=== PATIENT | female | born 1955 | race Caucasian/White ===

== ENCOUNTER 2019-05-31 07:24 | Day surgery (SDC) | payer BC ==
[2019-05-29 14:54] VITALS: BMI 32.0
[~2019-05-31 07:24] MED LIST: LACTATED RINGERS SOLUTION 1,000 ML IV SCH; ONDANSETRON 4 MG/2 ML VIAL IVPUSH PRN; oxyCODONE HCL 5 MG TABLET PO PRN
[2019-05-31] MEDS ORDERED: ACETAMINOPHEN INJECTION 100 ML IVPB ONE (07:44)
[2019-05-31] MEDS ORDERED: DEXAMETHASONE SOD PHOSPHATE/PF 10 MG/ML SDV ONE (08:13)
[2019-05-31] MEDS ORDERED: ROPIVACAINE HCL 0.5% 30ML VIAL ONE (08:13)
[2019-05-31] MEDS ORDERED: MIDAZOLAM HCL 2 MG/2 ML SINGLE DOSE VIAL ONE ×2 (08:14)
[2019-05-31] MEDS ORDERED: ceFAZolin SODIUM 1 GM VIAL ONE (08:34)
[2019-05-31] MEDS ORDERED: DEXAMETHASONE SOD PHOSPHATE 4 MG/1 ML VIAL ONE (08:36)
[2019-05-31 08:54] LABS: EPI CELLS 10.3 /HPF (0-5/HPF); HYALINE CASTS 32 /lpf (0-8); URINE APPEARANCE CLEAR; URINE BACTERIA 1.9 /hpf (NEGATIVE); URINE BILIRUBIN NEGATIVE (NEGATIVE); URINE COLOR YELLOW; URINE GLUCOSE (UA) NEGATIVE (NEGATIVE); URINE KETONE NEGATIVE (NEGATIVE); URINE LEUK ESTERASE 1+ (NEGATIVE); URINE NITRITE NEGATIVE (NEGATIVE); URINE PROTEIN NEGATIVE (NEGATIVE); URINE RBC 3 /hpf (0-4); URINE UROBILINOGEN 0.2 mg/dL (0.2-1.0); URINE WBC 7 /hpf (0-5)
--- NOTE | 2019-05-31 09:22 | HP ---
Satellite [facility] - Chief Complaint Chief Complaint: right wrist pain - Past Medical History Allergies/Adverse Reactions: Allergies Allergy/AdvReac Type Severity Reaction Status Date / Time chocolate flavor Allergy Verified 05/31/19 08:09 ciprofloxacin HCl Allergy Rash Verified 05/31/19 08:09 [From Cipro] lisinopril Allergy Rash Verified 05/31/19 08:09 - Current Medications Current Medications: Home Medications Medication Instructions Recorded AmLODIPine 5MG/BENAZEPRIL 20MG 1 cap PO BID 05/08/12 [Lotrel (Nf)] Ergocalciferol (Vitamin D2) 1.25 mg PO WEEKLY 05/29/19 [Vitamin D2] Omeprazole Magnesium [Prilosec Otc] 20 mg PO DAILY 05/29/19 Hydrocodone/Acetaminophen 1 each PO Q6H #30 tablet MDD 4 05/31/19 [Hydrocodone-Acetamin 5-325 mg] Satellite Physical Exam - Physical Examination Vital Signs: Vital Signs Period Temp Pulse Resp BP Sys/Dangelo Pulse Ox Last 24 Hr 98.3 F 84 16 137/77 98 General Appearance: Well Nourished, Well Developed, Alert & Oriented x3 ENT: Clear Lung: Normal air movement Heart: Regular rate & rhythm Extremities: Other (right wrist- + swelling, + ttp, + tinels, + phalens, decr rom, emg + cts) Neurological: Intact, Alert, Oriented Satellite Impression/Plan - Impression/Plan Impression: right wrist OA, cts Operative Procedure: right wrist proximal row carpectomy, ctr, PIN neuroectomy Date to be Performed: 05/31/19
[2019-05-31] MEDS ORDERED: LIDOCAINE HCL 1%, 10 MG/ML (20ML VIAL) INF ONE ×2 (09:45→09:58)
[2019-05-31] MEDS ORDERED: ceFAZolin SODIUM 1 GM VIAL IVPB ONE (09:45)
[2019-05-31] MEDS ORDERED: BUPIVACAINE HCL/PF 0.5% (5MG/ML) 10 ML VIAL IJ ONE ×2 (09:45→09:58)
[2019-05-31] MEDS ORDERED: PROPOFOL 20 ML ONE ×2 (10:02)
[2019-05-31] MEDS ORDERED: ePHEDrine SULFATE 50 MG/1 ML AMPULE ONE (11:24)
--- NOTE | 2019-05-31 11:47 | OP ---
Operative Note - Note: Operative Date: 05/31/19 ([facility]) Pre-Operative Diagnosis: right wrist OA, cts Operation: right wrist proximal row carpectomy, ctr, PIN neurectomy Post-Operative Diagnosis: Same as Pre-op Surgeon: Power Ortega Paper Novelty Maker: Quinton Trejo Anesthesiologist/DETECTIVE SERGEANT: Israel Johnson Anesthesia: General, Local Specimens Removed: bone fragments, PIN Estimated Blood Loss (mls): 0 (tourniquet) Operative Report Dictated: Yes
[2019-05-31] MEDS ORDERED: ONDANSETRON 4 MG/2 ML VIAL ONE (12:02)
[2019-05-31 13:25] VITALS: PULSE 80; TEMP 97.8
[2019-05-31 14:00] LABS: URINE CRYSTALS CALCIUM OXALATE-1+ /hpf
[2019-05-31 14:40] VITALS: BP 112/64
--- NOTE | 2019-05-31 19:46 | SPEC ---
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 PROCEDURE: 1. Proximal row carpectomy. 2. Radial styloidectomy. 3. Posterior interosseous nerve neurectomy. 4. Carpal tunnel release. 5. Tenosynovectomy. SURGEON: Kira Lloyd MD REAL ESTATE DEVELOPER: CORINNE Wasserman; Israel Johnson MD ANESTHESIA: Right interscalene block with LM anesthesia. DRAINS: None. COMPLICATIONS: None. SPECIMEN: 1. Tenosynovium, right carpal tunnel. 2. Posterior interosseous nerve. 3. Carpal bone and cartilage and radial styloid, right wrist. BLOOD LOSS: None. BLOOD GIVEN: None. FLUID REPLACEMENT: 1500 mL Plasmalyte. INDICATIONS: This patient is a 63-year-old female with a preoperative diagnosis of right wrist SNAC wrist. After understanding the potential risks, complications, alternatives, and benefits of surgery versus nonsurgical treatment, the patient elected to undergo this procedure. She understands that her wrist will not be perfect, the goal was to minimize but perhaps not eliminate pain and maximize function but not make it perfect or normal. She understands that and has elected to go forward with surgery. DESCRIPTION OF PROCEDURE: The patient was brought to the operating room, peripheral IV placed and intravenous sedation was given. One gram of intravenous Ancef was given. MAC anesthesia was induced. A tourniquet was applied to the right upper arm and the right upper extremity was prepped and draped in sterile fashion. The entire case was done under 3.8 loupe magnification. A marking pen was utilized to kayley out a longitudinal incision in an already existing skin crease. Twenty mL of 0.5% Marcaine mixed with 1% Lidocaine was injected in and around the surgical incision. The right upper extremity was elevated, exsanguinated with an Esmarch bandage and the tourniquet inflated to 250 mmHg. A No. 15 scalpel blade was utilized to cut down through the skin. Subcutaneous hemostasis was achieved with the bipolar cautery. Dissection was done through the superficial palmar fascia. Self-retaining retractors were placed into the wound. Under direct visualization, the transverse carpal ligament was transected with a No. 15 scalpel blade, exposing the median nerve and the contents of the carpal tunnel. The distal and proximal extents of the release were completed with a Littler scissor and checked with irrigation and my small finger. They were seen to be complete. Limited dissection was done on the radial side of the median nerve and more extensive dissection was done on the ulnar side of the median nerve. The patients nerve was seen to be quite compressed by epineurium and therefore a limited epineurotomy was performed. A Ragnell retractor was used to gently retract the median nerve in a radial direction. The patient had a lot of tenosynovitis and therefore a tenosynovectomy was performed off all 9 flexor tendons. This was passed off the field as tenosynovium, right wrist. The floor of the carpal tunnel was checked. There were no abnormal masses or ganglion cysts. The area was copiously irrigated and washed out and closure begun. Undyed 4-0 Vicryl was used to close the deep dermal layer. Final skin reapproximation was done with horizontal mattress 4-0 nylon sutures. The area was then washed and dried, covered with Xeroform, 4x4s, fluffs between the fingers, Webril and a 4-inch plaster roll was utilized to make a volar splint, which was then wrapped with Tanvir and Coban. Once we were finished with the volar aspect of the wrist, we went to the dorsal aspect. A slightly oblique incision would be made. A transverse incision was marked out with a marking pen at the level of the distal radial styloid. Then 15 mL of 0.5% Marcaine, 1% Lidocaine mix was injected in and around the surgical area. The right upper extremity was elevated, exsanguinated with an Esmarch bandage and the tourniquet inflated to 250 mg of mercury. A No. 15 scalpel blade was cut under the skin, subcutaneous hemostasis achieved with a bipolar cautery. There was one large vein which was cauterized, transected and tied with 2-0 silk suture. The dorsal retinaculum was exposed. Self-retaining retractors were placed into the wound. The interval between the third and fourth dorsal wrist compartment was visualized and incision made through it, raising an ulnar based flap. A 2-0 silk retraction suture was placed into the dorsal retinacular flap. Next, a 0.5-inch Donald drain was placed around the tendons of the fourth dorsal wrist compartment and retracted in ulnar direction. The posterior interosseous nerve at the radial base of the fourth dorsal wrist compartment was dissected out, identified and transected as proximal as possible. This was passed off the field as specimen No. 1, posterior interosseous nerve right wrist. Next, the extensor pollicis longus was partially released from its sheath and the interval between the third and fourth dorsal wrist compartment was opened with the capsulotomy. Dissection was done with a combination of the Beeson elevator and Mack elevator, Littler scissors and a No. 15 scalpel blade, raising these flaps of soft tissue attachments of the dorsal aspect of the proximal carpal row. Next, the distal radius, the scaphoid, lunate, the triquetrum and the capitate were all directly visualized. The wrist was put through a range of motion to confirm that these were the correct bones. The patient had a large scaphoid diastasis and affixed deformity with the lunate and deformity in the scaphoid volarly flexed. Then using a combination of a threaded josias-stick, No. 15 scalpel blade, Mack elevator and Beeson elevator, the three bones of the proximal carpal row, i.e., the scaphoid, the lunate and the triquetrum were all removed in a piece-meal fashion, passed off the field as specimen. The area was copiously irrigated and washed out to remove any small debris. Under direct visualization as well as palpation with my finger, I was not able feel any remnants of the proximal carpal row. The head of the capitate was free of osteoarthritis and sat down in the lunate fossa quite nicely. The radial scaphoid capitate ligament was directly visualized and seen to be completely intact. Next, our attention turned to dissection between the first and second dorsal wrist compartment. A subperiosteal dissection was done with a radial styloid and the radial styloid was excised, approximately 4 mm. This was also passed off the field as specimen No. 3, radial styloid right wrist. The area was copiously irrigated and washed out. The dorsal T capsulotomy was closed with 2-0 Vicryl sutures, came together quite nicely. The dorsal retinaculum was then closed over the fourth dorsal wrist compartment using 4-0 undyed Vicryl sutures. The area was irrigated and washed out again. The 4-0 undyed Vicryl was used to close the deep dermal layer and final skin re-approximation was done with a running subcuticular 4-0 Biosyn suture. The incision was covered with Steri-Strips, 4 x 4 gauze, Webril and a volar 4-inch Orthoglass splint was applied and wrapped with a Tanvir and a 4-inch SCOT bandage. ADDENDUM: Subcutaneous hemostasis was achieved with bipolar cautery. The 3.8 loupe magnification was used throughout the entire case. Dorsal neurovascular structures were saved and retracted to the side. Dissection was done down to the dorsal retinaculum. Weitlaner retractors were placed into the wound. I then used a fresh number 15 scalpel blade to incise the dorsal retinaculum, keeping an ulnar flap, and it was marked with a 2.0 silk suture for later repair. I then retracted the extensor tendons in an ulnar direction, found the posterior interosseous nerve on the base of the 4th dorsal wrist compartment, dissected it free, and excised a 1 cm length of it and passed it off the field as specimen number 2, posterior interosseous nerve, right wrist. This was done to denervate the wrist capsule and minimize pain. Next, I did a T capsulotomy type incision with a fresh number 15 scalpel blade through the dorsal wrist capsule and dissected the 4 flaps free of the periosteum on the dorsal aspect of the carpal bones. They were all retracted for later repair with 2-0 silk sutures. This exposed a very arthritic proximal carpal row and a scaphoid nonunion. Using a combination of the small straight osteotomes, mallet, number 15 scalpel blade, Beeson elevator, and rongeur, I then removed, in a piecemeal fashion, the lunate first, then the triquetrum, then the scaphoid in their entirety. It was all passed off the field as specimen. The area was copiously irrigated and washed out. I did not feel or see any other bone in the proximal carpal row. The area was copiously irrigated and washed out again. The patient had a prominent radial styloid, so then I used the rongeur to take off the radial styloid and include it as part of the specimen. I took great care to preserve the volar ligamentous structures. The capitate came down and sat in the lunate fossa of the radius quite well. The dorsal capsule was closed with 2-0 Vicryl sutures. It all came together quite well, was quite sturdy, stabilized the wrist quite well. The area was copiously irrigated and washed out again. Next, I closed the dorsal extensor retinaculum over the 4th dorsal wrist compartment tendons. This also came together quite well. Superficially it was washed out again. Final skin reapproximation was done with 4-0 undyed Vicryl in the deep dermal layer and final skin reapproximation was done with a running subcuticular 4-0 Biosyn stitch. It was then washed and dried and covered with Steri-Strips, Xeroform on the front carpal tunnel incision, sterile 4 x 4's, fluffs between the fingers, Webril, and a volar Ortho-Glass splint was applied, wrapped with Tanvir and Coban. Tourniquet was taken down now for a total tourniquet time of 85 minutes. There were no complications during the case. The patient tolerated the procedure quite well and was brought to the ambulatory recovery room in stable condition. KIRA LLOYD M.D. [id number]
--- NOTE | 2019-06-05 17:12 | PATH ---
Surgical Pathology Report Patient Name: MAKAYLA BRADY [facility]. Rec. #: [id number] /Age/Gender: 1955 (Age: 63) / F Account: [id number] Location: [facility] SURGICAL Taken: 05/31/2019 Received: 05/31/2019 Reported: 06/05/2019 Physicians: Power Ortega M.D. Specimen(s) Received A: TENOSYNOVIUM RIGHT HAND B: POSTERIOR INTEROSSEOUS NERVE RIGHT HAND C: CARPAL BONE-RIGHT HAND Clinical History Right carpal tunnel syndrome Final Diagnosis A. TENOSYNOVIUM, HAND, RIGHT, CARPAL TUNNEL RELEASE: BENIGN DENSE FIBROCONNECTIVE TISSUE. B. POSTERIOR INTEROSSEOUS NERVE, HAND, RIGHT, NEURECTOMY: PORTION OF NERVE WITHOUT SIGNIFICANT PATHOLOGIC FINDINGS. C. BONE, CARPAL TUNNEL, HAND, RIGHT, EXCISION: FRAGMENTS OF BENIGN BONE WITH DEGENERATIVE AND REACTIVE CHANGES, DENSE FIBROCONNECTIVE TISSUE, AND CARTILAGE. Electronically Signed Janet Mora M.D. Gross Description A. Received in formalin labeled "tenosynovium right hand," is a 2.0 x 1.4 x 0.3 cm portion of ortiz-yellow soft tissue, consistent with tenosynovium. The specimen is submitted in toto in one cassette. B. Received in formalin labeled "posterior interosseous nerve right hand," is a 1.7 x 0.3 x 0.1 cm ortiz-yellow portion of soft tissue, possibly consistent with nerve. The specimen is submitted in toto in one cassette. C. Received in formalin labeled "carpal tunnel bone right hand," is a 5.5 x 4.0 x 1.2 cm aggregate of abundant ortiz-yellow bone fragments. A manufacturer representative portion is submitted in one cassette, following decalcification. 06/01/201906/01/2019
== END 2019-05-31 14:30 | disposition home or self-care (01) ==
LOC: JASU-SURG 07:24
PROVIDERS: ATTEND Orthopaedic Surgery
PROC: 01B40ZZ Excision of Ulnar Nerve, Open Approach (ICD-10-PCS; 2019-05-31)
PROC: 01N50ZZ Release Median Nerve, Open Approach (ICD-10-PCS; 2019-05-31)
PROC: 0LB50ZZ Excision of Right Lower Arm and Wrist Tendon, Open Approach (ICD-10-PCS; 2019-05-31)
PROC: 0PTM0ZZ Resection of Right Carpal, Open Approach (ICD-10-PCS; principal; 2019-05-31 09:00)
PROC: 0PBH0ZZ Excision of Right Radius, Open Approach (ICD-10-PCS; 2019-05-31 09:00)
DX: M19.031 Primary osteoarthritis, right wrist (principal); G56.01 Carpal tunnel syndrome, right upper limb; M65.9 Synovitis and tenosynovitis, unspecified; S62.023 Displaced fracture of middle third of navicular [scaphoid] bone of unspecified wrist
CPT/HCPCS: 81003; 88304-TC; 88311-TC; 94760; J0131

== ENCOUNTER 2021-06-12 07:12 | Day surgery (SDC) | payer OTHER, BC ==
[2021-06-11 10:23] VITALS: BMI 32.0
[2021-06-12] MEDS ORDERED: PROPOFOL 20 ML ONE ×4 (07:16)
[2021-06-12] MEDS ORDERED: LIDOCAINE HCL/PF 2% SDV 5ML VIAL ONE (07:16)
[2021-06-12 07:47] VITALS: TEMP 98.2
[2021-06-12 10:29] VITALS: BP 113/70; PULSE 70
== END 2021-06-12 10:05 | disposition home or self-care (01) ==
LOC: FASU-ENDO 07:12
PROVIDERS: ATTEND Internal Medicine Gastroenterology
PROC: 0DBL8ZX Excision of Transverse Colon, Via Natural or Artificial Opening Endoscopic, Diagnostic (ICD-10-PCS; 2021-06-12)
PROC: 0DB98ZX Excision of Duodenum, Via Natural or Artificial Opening Endoscopic, Diagnostic (ICD-10-PCS; 2021-06-12)
PROC: 0DB68ZX Excision of Stomach, Via Natural or Artificial Opening Endoscopic, Diagnostic (ICD-10-PCS; 2021-06-12)
PROC: 0D748DZ Dilation of Esophagogastric Junction with Intraluminal Device, Via Natural or Artificial Opening Endoscopic (ICD-10-PCS; 2021-06-12)
PROC: 0DBK8ZX Excision of Ascending Colon, Via Natural or Artificial Opening Endoscopic, Diagnostic (ICD-10-PCS; principal; 2021-06-12 08:28)
DX: Z12.11 Encounter for screening for malignant neoplasm of colon (principal); D12.2 Benign neoplasm of ascending colon; K63.5 Polyp of colon; K29.50 Unspecified chronic gastritis without bleeding
CPT/HCPCS: 88305-TC; 88342-TC

== ENCOUNTER 2022-02-23 10:39 | Emergency (ER) | payer OTHER, BC ==
[2022-02-23 10:54] VITALS: BP 144/72; PULSE 75; TEMP 97.8; BMI 31.1
== END 2022-02-23 11:40 | disposition home or self-care (01) ==
LOC: FER 10:39
DX: L30.9 Dermatitis, unspecified (principal)
CPT/HCPCS: 99281-25

== ENCOUNTER 2022-12-10 08:12 | Day surgery (SDC) | payer OTHER, BC ==
[2022-12-07 15:32] VITALS: BMI 31.4
[2022-12-10 08:43] VITALS: RESP 16
[2022-12-10] MEDS ORDERED: LIDOCAINE HCL 1%, 10 MG/ML (20ML VIAL) ONE (09:16)
[2022-12-10] MEDS ORDERED: BUPIVACAINE HCL/PF 0.25% (2.5MG/ML) 10 ML VIAL ONE (09:16)
[2022-12-10] MEDS ORDERED: LIDOCAINE HCL/PF 2% SDV 5ML VIAL ONE (09:27)
[2022-12-10] MEDS ORDERED: MIDAZOLAM HCL 2 MG/2 ML SINGLE DOSE VIAL ONE (09:28)
[2022-12-10] MEDS ORDERED: PROPOFOL 60 ML ONE (09:28)
[2022-12-10] MEDS ORDERED: DEXAMETHASONE SOD PHOSPHATE 4 MG/1 ML VIAL ONE (10:27)
[2022-12-10] MEDS ORDERED: ceFAZolin SODIUM 1 GM VIAL ONE (10:27)
[2022-12-10] MEDS ORDERED: ONDANSETRON 4 MG/2 ML VIAL ONE (10:39)
[2022-12-10] MEDS ORDERED: KETOROLAC TROMETHAMINE 30 MG/1 ML VIAL ONE (10:39)
[2022-12-10 11:23] VITALS: TEMP 98.1
[2022-12-10 11:49] VITALS: BP 119/77; PULSE 77
== END 2022-12-10 12:04 | disposition home or self-care (01) ==
LOC: FASU 08:12
PROVIDERS: ATTEND Orthopaedic Surgery
PROC: 0LN70ZZ Release Right Hand Tendon, Open Approach (ICD-10-PCS; principal; 2022-12-10 10:43)
DX: M65.341 Trigger finger, right ring finger (principal)
CPT/HCPCS: 88304-TC

== ENCOUNTER 2023-01-28 19:38 | Emergency (ER) | payer OTHER, BC ==
[2023-01-28 19:46] VITALS: BP 135/92; PULSE 96; RESP 18; TEMP 97.8; BMI 31.1
[2023-01-28] MEDS ORDERED: SODIUM CHLORIDE 1,000 ML IV STA (19:57)
[2023-01-28 20:39] LABS: ALBUMIN 3.6 g/dl (3.4-5.0); BILIRUBIN,TOTAL 1.4 mg/dl (0.2-1); CALCIUM 9.3 mg/dl (8.5-10); CREATININE 1.1 mg/dl (0.55-1.3); TOT PROT 6.7 g/dl (6.4-8.2)
[2023-01-28 21:56] LABS: BASO % 0.3 % (0-2.0); EOS % 0.7 % (0-4.5); HEMATOCRIT 39.5 % (32.4-45.2); HEMOGLOBIN 13.3 GM/dL (10.7-15.3); LYMPH % 34.7 % (8-40); MCHC 33.6 g/dl (32.0-36.0); MEAN CELL VOLUME 80.4 fl (80-96); MEAN PLT VOLUME 8.8 fl (7.5-11.1); MONO % 16.4 % (3.8-10.2); NEUT % 47.9 % (42.8-82.8); PLATELET COUNT 243 10^3/uL (134-434); RBC 4.91 M/mm3 (3.60-5.2); RDW 14.5 % (11.6-15.6); WHITE BLOOD COUNT 3.7 K/mm3 (4.0-10.0)
== END 2023-01-28 22:37 | disposition home or self-care (01) ==
LOC: FER 19:38
PROC: 3E0337Z Introduction of Electrolytic and Water Balance Substance into Peripheral Vein, Percutaneous Approach (ICD-10-PCS; principal; 2023-01-28)
DX: R53.83 Other fatigue (principal); R19.7 Diarrhea, unspecified; Z87.19 Personal history of other diseases of the digestive system
CPT/HCPCS: 36415; 80053; 85025; 99284-25

== ENCOUNTER 2023-06-01 04:25 | Day surgery (SDC) | payer OTHER, BC ==
[2023-05-31 12:31] VITALS: BMI 31.1
[~2023-06-01 04:25] MED LIST changes: -LACTATED RINGERS SOLUTION 1,000 ML IV SCH; +LIDOCAINE HCL 1% PRESERVATIVE FREE - 30ML VIAL IJ ONE; -ONDANSETRON 4 MG/2 ML VIAL IVPUSH PRN; -oxyCODONE HCL 5 MG TABLET PO PRN
[2023-06-01] MEDS ORDERED: LIDOCAINE HCL/PF 2% SDV 5ML VIAL ONE (07:37)
[2023-06-01] MEDS ORDERED: BUPIVACAINE HCL/PF 0.5% (5MG/ML) 10 ML VIAL ONE (07:38)
[2023-06-01] MEDS ORDERED: BUPIVACAINE HCL/PF 0.25% (2.5MG/ML) 10 ML VIAL ONE (07:38)
[2023-06-01] MEDS ORDERED: LIDOCAINE HCL/PF 1% SDV 5ML VIAL ONE (07:38)
[2023-06-01] MEDS ORDERED: BUPIVACAINE HCL/PF 0.75% 10 ML VIAL ONE (07:38)
[2023-06-01] MEDS ORDERED: DEXAMETHASONE SOD PHOSPHATE 10 MG/1 ML VIAL ONE (07:38)
[2023-06-01] MEDS ORDERED: ACETAMINOPHEN 500 MG TABLET (FP) PO PRN (08:27)
[2023-06-01] MEDS ORDERED: LIDOCAINE HCL 1% PRESERVATIVE FREE - 30ML VIAL IJ ONE (13:34)
[2023-06-01 13:56] VITALS: RESP 18
[2023-06-01 14:54] VITALS: BP 123/69; PULSE 71; TEMP 97.8
== END 2023-06-01 14:52 | disposition home or self-care (01) ==
LOC: JASU-SURG 04:25
PROVIDERS: ATTEND Pain Medicine Pain Medicine
PROC: 3E0R3BZ Introduction of Anesthetic Agent into Spinal Canal, Percutaneous Approach (ICD-10-PCS; 2023-06-01)
PROC: 3E0R33Z Introduction of Anti-inflammatory into Spinal Canal, Percutaneous Approach (ICD-10-PCS; principal; 2023-06-01 14:15)
DX: M48.061 Spinal stenosis, lumbar region without neurogenic claudication (principal); M54.16 Radiculopathy, lumbar region
CPT/HCPCS: 76000-TC-FY; J1100

== ENCOUNTER 2023-06-10 14:00 | Emergency (ER) | payer OTHER, BC ==
[2023-06-10 14:34] VITALS: BP 137/91; PULSE 81; RESP 16; TEMP 98.6; BMI 31.1
== END 2023-06-10 15:58 | disposition home or self-care (01) ==
LOC: FER 14:00
DX: R21 Rash and other nonspecific skin eruption (principal); L29.9 Pruritus, unspecified
CPT/HCPCS: 99283-25

== ENCOUNTER 2023-11-02 04:33 | Day surgery (SDC) | payer OTHER, BC ==
[2023-10-28 09:42] VITALS: BMI 31.4
[2023-11-02] MEDS ORDERED: LIDOCAINE HCL/PF 1% SDV 5ML VIAL ONE (07:20)
[2023-11-02] MEDS ORDERED: DEXAMETHASONE SOD PHOSPHATE 10 MG/1 ML VIAL ONE (07:20)
[2023-11-02 08:11] VITALS: RESP 20
[2023-11-02] MEDS ORDERED: ACETAMINOPHEN 500 MG TABLET (FP) PO PRN (10:29)
[2023-11-02] MEDS ORDERED: DEXAMETHASONE SOD PHOSPHATE 10 MG/1 ML VIAL IVPUSH ONE (11:34)
[2023-11-02] MEDS ORDERED: LIDOCAINE 1% P/F 10 MG/ML VIAL INF ONE (11:34)
[2023-11-02] MEDS ORDERED: IOHEXOL 180 MG/1 ML ML IJ ONE (11:34)
[2023-11-02 12:25] VITALS: BP 138/77; PULSE 78; TEMP 98
== END 2023-11-02 12:20 | disposition home or self-care (01) ==
LOC: JASU-SURG 04:33
PROVIDERS: ATTEND Pain Medicine Pain Medicine
PROC: 3E0R3BZ Introduction of Anesthetic Agent into Spinal Canal, Percutaneous Approach (ICD-10-PCS; 2023-11-02)
PROC: 3E0R33Z Introduction of Anti-inflammatory into Spinal Canal, Percutaneous Approach (ICD-10-PCS; principal; 2023-11-02 10:00)
DX: M48.061 Spinal stenosis, lumbar region without neurogenic claudication (principal); M54.16 Radiculopathy, lumbar region
CPT/HCPCS: 76000-TC-FY; J1100

== ENCOUNTER 2024-01-15 13:33 | Emergency (ER) | payer OTHER, BC ==
[2024-01-15 13:55] VITALS: BP 108/74; PULSE 89; RESP 18; TEMP 99.3; BMI 30.7
== END 2024-01-15 14:28 | disposition home or self-care (01) ==
LOC: FER 13:33
DX: R51.9 Headache, unspecified (principal); R09.81 Nasal congestion; R05.9 Cough, unspecified; B34.9 Viral infection, unspecified; J10.1 Influenza due to other identified influenza virus with other respiratory manifestations; Z20.822 Contact with and (suspected) exposure to COVID-19
CPT/HCPCS: 0241U-QW; 99283-25